=== PATIENT | male | born 1995 | race African-American/Black ===

== ENCOUNTER 2021-01-10 09:59 | Emergency (ER) | payer BC, OTHER ==
[~2021-01-10] VITALS: Ht 195.6 cm; Wt 118.7 kg
[2021-01-10 10:05] VITALS: BP 127/71
[2021-01-10] MEDS ORDERED: IBUPROFEN 600 MG TABLET. PO ONE (10:15)
--- NOTE | 2021-01-10 10:48 | PHYS DOC ---
Past History Past Medical History: Bipolar (ANGELA FORD APRN) Past Surgical History: No Surgical History (ANGELA FORD APRN) Alcohol Use: Rarely Drug Use: None (ANGELA FORD APRN) General Adult EDM: Chief Complaint: KNEE INJURY HPI: HPI: Patient is a 25-year-old male presents with right knee pain. Patient states he was at work when he slipped on some water and felt like he heard a pop in his right knee. Patient denies falling or any other injuries. Patient is able to ambulate and has full range of motion. Denies taking anything for pain. Pain is exacerbated by ambulation and improved with sitting. (ANGELA FORD APRN) Review of Systems: Review of Systems: Constitutional: Denies fever or chills Eyes: Denies change in visual acuity HENT: Denies nasal congestion or sore throat Respiratory: Denies cough or shortness of breath Cardiovascular: Denies chest pain or edema GI: Denies abdominal pain, nausea, vomiting, bloody stools or diarrhea : Denies dysuria Musculoskeletal: Reports right knee pain Integument: Denies rash Neurologic: Denies headache, focal weakness or sensory changes Endocrine: Denies polyuria or polydipsia Lymphatic: Denies swollen glands Psychiatric: Denies depression or anxiety (ANGELA FORD APRN) Current Medications: Current Meds: Current Medications Medications (Trade) Dose Ordered Sig/Abby Start Time Stop Time Status Last Admin Dose Admin Ibuprofen (Motrin) 600 mg 1X ONCE 01/10/21 10:15 01/10/21 10:16 DC 01/10/21 10:30 600 MG (ANGELA FORD APRN) Allergies: Allergies: Allergies Coded Allergies Type Severity Reaction Last Updated Verified No Known Drug Allergies 04/01/15 No (ANGELA FORD APRN) Physical Exam: PE: Constitutional: Well developed, well nourished, no acute distress, non-toxic appearance. [] HENT: Normocephalic, atraumatic, bilateral external ears normal, oropharynx moist, no oral exudates, nose normal. [] Eyes: PERRLA, EOMI, conjunctiva normal, no discharge. [] Neck: Normal range of motion, no tenderness, supple, no stridor. [] Cardiovascular:Heart rate regular rhythm, no murmur [] Lungs & Thorax: Bilateral breath sounds clear to auscultation [] Abdomen: Bowel sounds normal, soft, no tenderness, no masses, no pulsatile masses. [] Skin: Warm, dry, no erythema, no rash. [] Back: No tenderness, no CVA tenderness. [] Extremities: Right knee tenderness, no cyanosis, no clubbing, ROM intact, no edema. [] Neurologic: Alert and oriented X 3, normal motor function, normal sensory function, no focal deficits noted. [] Psychologic: Affect normal, judgement normal, mood normal. [] (ANGELA FORD APRN) Current Patient Data: Vital Signs: Vital Signs Date Time Temp Pulse Resp B/P (MAP) Pulse Ox O2 Delivery O2 Flow Rate FiO2 01/10/21 10:05 97.9 71 20 127/71 97 Room Air (ANGELA FORD APRN) EKG: EKG: [] (ANGELA FORD APRN) Radiology/Procedures: Radiology/Procedures: []EXAMINATION: XR KNEE 3 VIEWS_RT CLINICAL HISTORY: Right knee pain TECHNIQUE: XR KNEE 3 VIEWS_RT Number of Images/Views: 3 COMPARISON: None FINDINGS: Joint spaces and alignment maintained. No acute fracture. No significant joint effusion. IMPRESSION: No acute osseous abnormality right knee. Electronically signed by: Guido Lindsey DO (01/10/2021 11:21 AM) [id number] (ANGELA FORD APRN) Heart Score: C/O Chest Pain: No Risk Factors: Risk Factors: DM, Current or recent (<one month) smoker, HTN, HLP, family history of CAD, obesity. Risk Scores: Score 0 - 3: 2.5% MACE over next 6 weeks - Discharge Home Score 4 - 6: 20.3% MACE over next 6 weeks - Admit for Clinical Observation Score 7 - 10: 72.7% MACE over next 6 weeks - Early Invasive Strategies (ANGELA FORD APRN) Course & Med Decision Making: Course & Med Decision Making Pertinent Labs and Imaging studies reviewed. (See chart for details) [] 25-year-old male presents with right knee pain. Patient states he slipped on some water and twisted his knee. Patient denies falling or hitting his head. Denies all injury injuries. Right knee x-ray ordered. 600 mg Motrin given. Right knee x-rays negative. Patient given rice instructions. Christophe wrap applied to right knee. Referral for Ortho provided to patient upon discharge. Patient states that he is being seen through work comp. Explained to patient he may need to follow-up with a physician provided by his work. Ibuprofen and Tylenol at home for pain. Patient is appreciative and okay with discharge plan peer (ANGELA FORD APRN) Course & Med Decision Making I oversaw on the above date of service of this patient. This patient was evaluated, examined, treated, and dispositioned from the emergency department by the mid-level practitioner. Although I was working at the time , no assistance was requested. Electronically signed, Allan Luciano DO (ALLAN LUCIANO DO) Vamsi Disclaimer: Vasmi Disclaimer: This electronic medical record was generated, in whole or in part, using a voice recognition dictation system. (ANGELA OFRD APRN) Departure Departure: Impression: Primary Impression: Knee pain, right Qualified Codes: M25.561 - Pain in right knee Disposition: HOME / SELF CARE / HOMELESS Condition: STABLE Referrals: PCP,NO (PCP) Patient Instructions: Knee Pain, [id number], RICE - Routine Care for Injuries Additional Instructions: You are seen in the emergency room for right knee pain after being on water at work. X-ray of your right knee was negative. You may need to follow-up with Ortho or Dr. That would be provided by work comp if pain continues. You may require further imaging such as an MRI. Ibuprofen and Tylenol at home. Rest, ice, Christophe wrap on knee and elevation are ongoing to help with swelling and pain. Worsening symptoms or concerns EMERGENCY DEPARTMENT GENERAL DISCHARGE INSTRUCTIONS Thank you for coming to [facility] (ED) today and trusting us with you care. We trust that you had a positivie experience in our Emergency Department. If you wish to speak to the department management, you may call the director at [phone]. YOUR FOLLOW UP INSTRUCTIONS ARE FOLLOWS: 1. Do you have a private Doctor? If you do not have a private doctor, please ask for a resource list of physicians or clinics that may be able to assist you with follow up care. 2. The Emergency Physician has interpreted your x-rays. The X-Ray specialist will also review them. If there is a change in the findings, you will be notified in 48 hours when at all possible. 3. A lab test or culture has been done, your results will be reviewed and you will be notified if you need a change in treatment. ADDITIONAL INSTRUCTIONS AND INFORMATION: 1. Your care today has been supervised by a physician who is specially trained in emergency care. Many problems require more than one evaluation for a complete diagnosis and treatment. We recommend that you schedule your follow up appointment as recommended to ensure complete treatment of you illness or injury. If you are unable to obtain follow up care and continue to have a problem, or if your condition worsens, we recommend that you return to the ED. 2. We are not able to safely determine your condition over the phone nor are we able to give sound medical advice over the phone. For these safety reasons, if you call for medical advice we will ask you to come to the ED for further evaluation. 3. If you have any questions regarding these discharge instructions please call the ED at [phone]. SAFETY INFORMATION: In the interest of safety, wellness, and injury prevention; we encourage you to wear your sealbelt, if you smoke; quite smoking, and we encourage family to use a protective helmet for bicycling and other sporting events that present an increased risk for head injury. IF YOUR SYMPTOMS WORSEN OR NEW SYMPTOMS DEVELOP, OR YOU HAVE CONCERNS ABOUT YOUR CONDITION; OR IF YOUR CONDITION WORSENS WHILE YOU ARE WAITING FOR YOUR FOLLOW UP APPOINTMENT; EITHER CONTACT YOUR PRIMARY CARE DOCTOR, THE PHYSICIAN WHOSE NAME AND NUMBER YOU WERE GIVEN, OR RETURN TO THE ED IMMEDIATELY. ANGELA FORD APRN Jan 10, 2021 10:48 ALLAN LUCIANO DO Jan 11, 2021 07:51
--- NOTE | 2021-01-10 11:24 | RAD ---
EXAMINATION: XR KNEE 3 VIEWS_RT CLINICAL HISTORY: Right knee pain TECHNIQUE: XR KNEE 3 VIEWS_RT Number of Images/Views: 3 COMPARISON: None FINDINGS: Joint spaces and alignment maintained. No acute fracture. No significant joint effusion. IMPRESSION: No acute osseous abnormality right knee. Electronically signed by: Guido Lindsey DO (01/10/2021 11:21 AM) [id number]
== END 2021-01-10 11:35 | disposition home or self-care (01) ==
LOC: ER 09:59
DX: M25.561 Pain in right knee (principal); F31.9 Bipolar disorder, unspecified
CPT/HCPCS: 73562; 99283

== ENCOUNTER → 2021-03-02 | Outpatient (CLI) | payer OTHER ==
--- NOTE | 2021-03-02 17:50 | RAD ---
Right knee 3 views. HISTORY: Pain injury in December, not getting better 3 views were taken of the right knee. There is not evidence of an acute fracture or joint effusion or osseous abnormality. IMPRESSION: 1. No acute osseous abnormality noted in the right knee. Electronically signed by: Sekou Bhatt MD (03/02/2021 5:48 PM) [facility]
== END ==
LOC: PMG 17:25
PROVIDERS: ATTEND Nurse Practitioner Family
DX: M25.561 Pain in right knee (principal)
CPT/HCPCS: 73562

== ENCOUNTER 2021-10-04 23:12 | Emergency (ER) | payer BC, OTHER ==
[~2021-10-04] VITALS: Ht 195.6 cm; Wt 129.4 kg
--- NOTE | 2021-10-04 23:43 | PHYS DOC ---
Past History Past Medical History: Bipolar Past Surgical History: No Surgical History Alcohol Use: None Additional Alcohol Information: former drinker Drug Use: None General Adult EDM: Chief Complaint: EARACHE/EAR PAIN HPI: HPI: Patient is a 26-year-old male coming in for right ear pain. Patient states has been present about a day. Does say he is recently been swimming. No history of ear infection but does have a history of a TM rupture several years ago, was never evaluated for that to see if it resolved. His pain is worse with movement of his ear, no drainage. Review of Systems: Review of Systems: All other systems within normal limits except for as noted in the HPI Allergies: Allergies: Allergies Coded Allergies Type Severity Reaction Last Updated Verified No Known Drug Allergies 04/01/15 No Physical Exam: PE: Constitutional: Well developed, well nourished, no acute distress, non-toxic appearance. [] HENT: Normocephalic, atraumatic, bilateral external ears normal, nose normal. Pain with movement of the right tragus, no mastoid tenderness, inflammation, swelling, and debris in canal, part of TM visualized does not show any rupture or otitis media. Unable to assess entire TM due to swelling of canal [] Eyes: PERRLA, conjunctiva normal, no discharge. [] Neck: No rigidity, supple, no stridor. [] Cardiovascular: Regular rate and rhythm, brisk cap refill [] Lungs & Thorax: Non labored symmetric respirations, no tachypnea or respiratory distress [] Abdomen: Soft, nondistended. Skin: Warm, dry, no erythema, no rash. [] Back: Unremarkable Extremities: No deformities, range of motion grossly intact, no lower extremity edema [] Neurologic: Alert and oriented X 3, no focal deficits noted. [] Psychologic: Affect normal, judgement normal, mood normal. [] Current Patient Data: Vital Signs: Vital Signs Date Time Temp Pulse Resp B/P (MAP) Pulse Ox O2 Delivery O2 Flow Rate FiO2 10/04/21 23:21 98.1 87 16 140/86 (104) 96 Room Air EKG: EKG: [] Radiology/Procedures: Radiology/Procedures: [] Heart Score: C/O Chest Pain: No Risk Factors: Risk Factors: DM, Current or recent (<one month) smoker, HTN, HLP, family history of CAD, obesity. Risk Scores: Score 0 - 3: 2.5% MACE over next 6 weeks - Discharge Home Score 4 - 6: 20.3% MACE over next 6 weeks - Admit for Clinical Observation Score 7 - 10: 72.7% MACE over next 6 weeks - Early Invasive Strategies Course & Med Decision Making: Course & Med Decision Making Pertinent Labs and Imaging studies reviewed. (See chart for details) [] Dragon Disclaimer: Dragon Disclaimer: This electronic medical record was generated, in whole or in part, using a voice recognition dictation system. Departure Departure: Impression: Primary Impression: Right otitis externa Disposition: HOME / SELF CARE / HOMELESS Condition: STABLE Referrals: PCP,NO (PCP) Patient Instructions: Otitis Externa Additional Instructions: Use Corticosporin drops in right ear: 4 drops in right ear every 8 hours for 7 days BABITA DOLAN MD October 04, 2021 23:43
[2021-10-04] MEDS ORDERED: NEOMYCIN/POLYMYXIN/HC OTIC SUSPENSION 10ML BOTTLE. AD ONE (23:45)
[2021-10-05 00:01] VITALS: BP 136/84
== END 2021-10-05 00:05 | disposition home or self-care (01) ==
LOC: ER 23:12
DX: H60.91 Unspecified otitis externa, right ear (principal)
CPT/HCPCS: 99283